=== PATIENT | male | born 1995 | race Caucasian/White ===

== ENCOUNTER 2022-09-05 10:36 | Emergency (ER) | payer MEDICAID ==
[~2022-09-05] VITALS: Ht 167.6 cm; Wt 94.3 kg
[2022-09-05 10:46] VITALS: BP 128/84
--- NOTE | 2022-09-05 10:51 | NUR ---
WALKED IN C/O NAUSEA AND VOMITING ONSET THIS MORNING BUT STATES THE SYMPTOMS HAVE RESOLVED AT THIS TIME. AAO4, AMBULATORY, VITALS STABLE. PMH: NONE
[2022-09-05] MEDS ORDERED: ONDANSETRON 4 MG ODT PO ONE (11:00)
--- NOTE | 2022-09-05 11:12 | NUR ---
PO CHALLENGE TOLERATED WITH WATER. ERMD AWARE
[2022-09-05] MEDS ORDERED: ONDA-188 PO (11:19)
--- NOTE | 2022-09-05 11:25 | NUR ---
Patient discharged with v/s stable. Written and verbal after care instructions given and explained. Patient verbalized understanding. Ambulatory with steady gait. All questions addressed prior to discharge. Advised to follow up with PMD.
== END 2022-09-05 11:25 | disposition home or self-care (01) ==
LOC: MED 10:36
DX: R11.10 Vomiting, unspecified (principal)
CPT/HCPCS: 81002; 99283; Q0162